=== PATIENT | female | born 1935 | race Caucasian/White ===

== ENCOUNTER 2016-08-02 18:18 | Emergency (ER) | payer MEDICARE, OTHER ==
[2016-08-02 18:59] LABS: #Eosinphils 0.1 thou/uL (0.0-0.7); #Lymphocytes 1.1 thou/uL (1.20-3.40); #Monocytes 0.3 thou/uL (0.11-0.59); #Neutrophils 2.2 thou/uL (1.40-6.50); %Basophils 0.7 % (0.0-1.0); %Eosinophils 1.5 % (0.0-10.0); %Lymphocytes 28.8 % (21.0-51.0); Hemoglobin 9.4 g/dL (12.0-16.0); Mean Corpuscular HGB CONC 33.9 g/dL (32.0-36.0); Mean Corpuscular Hemoglobin 31.9 pg (27.0-31.0); Mean Corpuscular Volume 94.2 fl (81.0-99.0); Mean Platelet Volume 5.2 fL (7.4-10.4); Platelet Count 285 thou/uL (130-400); RBC Distribution Width 15.4 % (11.5-14.5); Red Blood Cell (RBC) Count 2.96 mill/uL (4.20-5.40); White Blood Cell (WBC) Count 3.7 thou/uL (4.8-10.8)
[2016-08-02] MEDS ORDERED: Aspirin 325 MG TAB ONE (19:02)
[2016-08-02] MEDS ORDERED: Morphine Sulfate 2 MG/ML SYRINGE ONE (19:03)
[2016-08-02] MEDS ORDERED: Ondansetron HCl/PF 4 MG/2 ML Vial ONE (19:03)
[2016-08-02] MEDS ORDERED: Ketorolac Tromethamine 30 MG/ML VIAL ONE (19:03)
[2016-08-02 19:08] LABS: ALT (SGPT) 10 U/L (8-55); AST (SGOT) 14 U/L (5-34); Albumin 2.7 g/dL (3.4-4.8); Alkaline Phosphatase 65 U/L (40-150); Anion Gap 14 mmol/L (10-20); BUN (Urea Nitrogen) 30 mg/dL (9.8-20.1); Bilirubin, Total Less than 0.3 mg/dL (0.2-1.2); CK (CPK) 57 U/L (29-168); CKMB 1.3 ng/mL (0-6.6); Calc. Creatinine Clearance 0 mL/min (70-130); Calcium 7.6 mg/dL (7.8-10.44); Carbon Dioxide 20 mmol/L (23-31); Chloride 110 mmol/L (98-107); Estimated GFR-MDRD 18; Globulin 2.2 g/dL (2.4-3.5); Glucose 95 mg/dL (83-110); Magnesium 1.9 mg/dL (1.6-2.6); Potassium 4.5 mmol/L (3.5-5.1); Protein, Total 4.9 g/dL (6.0-8.3); Sodium 139 mmol/L (136-145); Troponin I 0.015 ng/mL (< 0.028)
[2016-08-02 19:11] LABS: Prothrombin Time 13.7 SEC (12.0-14.7)
[2016-08-02 19:49] LABS: Bilirubin Negative (Negative); Clarity Clear (Clear); Glucose, Urine (Dipstick) Negative (Negative); Leukocyte Negative (Negative); Nitrite Negative (Negative); Protein, Urine (Dipstick) > or equal to 300 mg/dL (Neg-Trace); Specific Gravity, Urine 1.025 (1.005-1.030); Urobilinogen 0.2 mg/dL (0.2-1.0)
[2016-08-02 19:50] LABS: Blood, Urine Small (Negative)
--- NOTE | 2016-08-02 19:53 | RAD ---
TWO VIEWS CHEST: Date: 08-02-16 Comparison: 07-30-13 History: Chest pain. FINDINGS: The lungs are hyperinflated with mild increased linear interstitial density bilaterally. Mild blunti ng of the costophrenic angles suggests small volume pleural fluid and/or pleural scar bilaterally. There is prominence of the cardiac silhouette. There is extensive atherosclerotic calcification of the thoracic aorta. There are mild anterior wedge compression fractures of T9 and T10, stable. IMPRESSION: Minimal blunting of bilateral costophrenic angles suggesting small volume pleural fluid and/or pleur al scar. No focal consolidation or alveolar edema. POS: [facility]
[2016-08-02 19:57] LABS: Bacteria/HPF Rare-Few HPF (None Seen); RBC/HPF 0-3 HPF (0-3); WBC/HPF 0-3 HPF (0-3)
== END 2016-08-02 21:30 | disposition home or self-care (01) ==
LOC: MADERS 18:18
DX: R07.9 Chest pain, unspecified (principal); I10 Essential (primary) hypertension; J44.9 Chronic obstructive pulmonary disease, unspecified; F32.9 Major depressive disorder, single episode, unspecified; Z79.899 Other long term (current) drug therapy; Z79.82 Long term (current) use of aspirin
CPT/HCPCS: 71020; 80053; 81001; 82550; 82553; 82728; 83735; 83880; 84484; 85025; 85610; 85730; 86140; 87086; 93005; 94760; 96374; 96375; J1885; J2270; J2405

== ENCOUNTER 2016-08-10 08:32 | Outpatient (CLI) | payer MEDICARE, OTHER ==
--- NOTE | 2016-08-10 10:33 | CT ---
CT THORAX NONCONTRAST: Date: 08/10/16 HISTORY: 80-year-old female with history of lung nodule. COMPARISON: There are no prior chest CTs available for comparison. None of the recent chest radiograph reports f rom 2016 and 2013 mentions any lung nodule. FINDINGS: There is no suspicious pulmonary nodule. There is a tiny right pleural effusion. There is mild pulmo nary scar in the right lower lobe, a portion of which abuts the right pleural effusion. There is no left-sided pleural effusion. Otherwise, the lungs are clear. Nonspecific mildly enlarged mediastinal lymph nodes. No cardiomegaly. Heavy atherosclerotic calcification of the aortic arch and descending thoracic aorta, without aneurysm there. There is fusiform dilation of the infrarenal abdominal aort a to dimensions of approximately 2.7 x 2.9 cm, almost aneurysmal. No hydronephrosis. No bullae. Ther e is loss of height, mostly mild, of some of the thoracic vertebral bodies and upper lumbar vertebra l bodies. There is mild bony retropulsion of the T12 vertebral body, qualifying this as a mild burst fracture. These fractures are of indeterminate age, but they are all presumed to be old. IMPRESSION: 1. No suspicious pulmonary nodule. 2. Atherosclerosis of the thoracic and abdominal aorta. 3. Tiny right pleural effusion. 4. Several mild compression fractures and a mild burst fracture, of thoracic spine and upper lumbar spine, of unknown ages. JODIE Franklin POS: [facility]
--- NOTE | 2016-08-10 10:45 | ULT ---
ULTRASOUND ABDOMEN COMPLETE: Date: 08/10/16 HISTORY: Upper abdominal pain. COMPARISON: CT of chest from same date. TECHNIQUE: Real-time Rodriguez scale and color Doppler with spectral analysis of the abdomen was performed with a cu rvilinear transducer. FINDINGS: There is focal aortic dilatation of the superior aorta measuring 2.8 cm for a length of approximatel y 3.6 cm. Remainder of aorta appears unremarkable. Visualized IVC is unremarkable. Common bile duct measures 3.0 mm and is normal. Gallbladder wall thickness is normal measuring less than 3.0 mm. Right kidney measures 8.9 x 4.0 x 4.1 cm with mild increased echogenicity. Left kidney measures 8.6 x 3.6 x 3.5 cm, with increased echogenicity. No hydronephrosis. Spleen measures 8.3 x 4.4 x 3.8 cm. Sonographic Mcmanus's sign is positive according to the technologist. No cholelithiasis is seen. IMPRESSION: 1. Positive Mcmanus's sign with a normal gallbladder wall thickness, can be seen with acalculous cho lecystitis versus biliary colic. No choledocholithiasis or dilatation of the common bile duct. 2. Mild dilatation of the mid aorta measuring up to 2.8 cm for a length of 3.6 cm. 3. Mild increased echotexture of the kidneys which are small, suggestive of medical renal disease. No evidence of obstructive uropathy. POS: [facility]
== END 2016-08-10 08:33 | disposition home or self-care (01) ==
LOC: MADCT 08:32
PROVIDERS: ATTEND General Practice
DX: R91.1 Solitary pulmonary nodule (principal); R10.10 Upper abdominal pain, unspecified; I70.0 Atherosclerosis of aorta; J90 Pleural effusion, not elsewhere classified; S22.001 Stable burst fracture of unspecified thoracic vertebra; S32.009G Unspecified fracture of unspecified lumbar vertebra, subsequent encounter for fracture with delayed healing
CPT/HCPCS: 71250; 76700

== ENCOUNTER 2017-03-27 11:38 | Emergency (ER) | payer MEDICARE, OTHER ==
[~2017-03-27 11:38] MED LIST: Sodium Chloride 0.9% 1,000 ML BAG ONE
[2017-03-27] MEDS ORDERED: Fentanyl 100 MCG/2 ML VIAL ONE (13:01)
[2017-03-27 13:02] LABS: #Lymphocytes 0.6 thou/uL (1.20-3.40); #Monocytes 0.2 thou/uL (0.11-0.59); #Neutrophils 6.4 thou/uL (1.40-6.50); %Basophils 0.2 % (0.0-1.0); %Eosinophils 0.1 % (0.0-10.0); %Lymphocytes 8.4 % (21.0-51.0); %Monocytes 2.3 % (0.0-10.0); Hemoglobin 13.8 g/dL (12.0-16.0); Mean Corpuscular HGB CONC 33.1 g/dL (32.0-36.0); Mean Corpuscular Hemoglobin 31.1 pg (27.0-31.0); Mean Corpuscular Volume 93.8 fl (81.0-99.0); Mean Platelet Volume 6.3 fL (7.4-10.4); Platelet Count 331 thou/uL (130-400); RBC Distribution Width 13.4 % (11.5-14.5); Red Blood Cell (RBC) Count 4.43 mill/uL (4.20-5.40); White Blood Cell (WBC) Count 7.1 thou/uL (4.8-10.8)
[2017-03-27 13:40] LABS: ALT (SGPT) 15 U/L (8-55); AST (SGOT) 14 U/L (5-34); Albumin 3.2 g/dL (3.4-4.8); Alkaline Phosphatase 69 U/L (40-150); Anion Gap 22 mmol/L (10-20); BUN (Urea Nitrogen) 49 mg/dL (9.8-20.1); Calc. Creatinine Clearance 0 mL/min (70-130); Calcium 8.9 mg/dL (7.8-10.44); Carbon Dioxide 21 mmol/L (23-31); Chloride 101 mmol/L (98-107); Estimated GFR-MDRD 16; Glucose 105 mg/dL (83-110); Lipase 13 U/L (8-78); Potassium 4.6 mmol/L (3.5-5.1); Protein, Total 6.2 g/dL (6.0-8.3); Sodium 139 mmol/L (136-145)
--- NOTE | 2017-03-27 14:46 | CT ---
CT ABDOMEN AND PELVIS WITHOUT CONTRAST: Technique: Multiple axial tomograms were obtained through the abdomen and pelvis without IV enhanceme nt. History: Abdominal pain. Low back pain. History of abdominal aortic aneurysm. FINDINGS: The lung bases are clear. Liver, spleen, and pancreas are unremarkable. The gallbladder is distended. No gallstones identified by CT, however, cholesterol stones would not be apparent by CT. Consider co rrelation with gallbladder ultrasound. Kidneys are unremarkable with no evidence of hydronephrosis or urinary tract calculus. Urinary bladde r unremarkable. Aorta is densely calcified. There is a small sacular aneurysmal dilatation of the mid abdominal aorta measuring up to 3.0 cm diameter in the coronal plane. Bowel loops unremarkable. Appendix is not iden tified. Diverticulosis of the left colon. No evidence of diverticulitis or other acute process. Review of the lumbar spine reveals numerous compression deformities. The L2 vertebra maintains height . All other visualized vertebra show varying degrees of compression. No significant retropulsion. The se are all age indeterminate compression deformities. Compression appears most pronounced at the L4 a nd L5 vertebra where L4 exhibits loss of central anterior height at 75% and L5 probably 50-60% loss o f height. Wedging at L3 results in 30% loss of anterior height. Mild wedging at T12 and L1 also noted . IMPRESSION: 1. No acute intraabdominal process. Abdominal aortic aneurysm is again noted. 2. Numerous compression deformities of the lumbar spine, age indeterminate. Consistent with osteoporo tic compressions. POS: [facility]
== END 2017-03-27 15:15 | disposition home or self-care (01) ==
LOC: MADERS 11:38
DX: M54.5 Low back pain (principal); E03.9 Hypothyroidism, unspecified; I50.9 Heart failure, unspecified; I25.10 Atherosclerotic heart disease of native coronary artery without angina pectoris; K21.9 Gastro-esophageal reflux disease without esophagitis; E78.5 Hyperlipidemia, unspecified; I10 Essential (primary) hypertension; F32.9 Major depressive disorder, single episode, unspecified; Z79.899 Other long term (current) drug therapy
CPT/HCPCS: 74176; 80053; 83690; 85025; 96361; 96374; J3010; J7050

== ENCOUNTER 2017-06-02 14:24 | Outpatient (CLI) | payer MEDICARE, OTHER ==
[2017-06-02 14:34] LABS: Hemoglobin 12.1 g/dL (12.0-16.0); Mean Corpuscular Hemoglobin 31.2 pg (27.0-31.0); Mean Corpuscular Volume 97.5 fL (81.0-99.0); Mean Platelet Volume 5.7 fL (7.4-10.4); Platelet Count 257 thou/uL (130-400); RBC Distribution Width 14.9 % (11.5-14.5); Red Blood Cell (RBC) Count 3.87 mill/uL (4.20-5.40); White Blood Cell (WBC) Count 7.8 thou/uL (4.8-10.8)
[2017-06-02 14:35] LABS: #Lymphocytes 0.6 thou/uL (1.20-3.40); #Monocytes 0.3 thou/uL (0.11-0.59); #Neutrophils 6.8 thou/uL (1.40-6.50); %Basophils 0.4 % (0.0-1.0); %Eosinophils 0.1 % (0.0-10.0); %Lymphocytes 8.1 % (21.0-51.0); %Monocytes 4.1 % (0.0-10.0); %Neutrophils 87.3 % (42.0-75.0); Manual Diff?? NO
[2017-06-02 14:45] LABS: Anion Gap 18 mmol/L (10-20); BUN (Urea Nitrogen) 28 mg/dL (9.8-20.1); Calc. Creatinine Clearance 0 mL/min (70-130); Calcium 7.9 mg/dL (7.8-10.44); Carbon Dioxide 18 mmol/L (23-31); Chloride 108 mmol/L (98-107); Estimated GFR-MDRD 19; Glucose 127 mg/dL (83-110); Phosphorus 3.4 mg/dL (2.3-4.7); Potassium 4.4 mmol/L (3.5-5.1); Sodium 140 mmol/L (136-145)
[2017-06-03 20:35] LABS: Follow-up Chemistry Comp? YES; Follow-up Result - Chemistry REPORT FAXED
== END 2017-06-02 14:25 | disposition home or self-care (01) ==
LOC: MADLAB 14:24
PROVIDERS: ATTEND Internal Medicine Nephrology
DX: N18.4 Chronic kidney disease, stage 4 (severe) (principal)
CPT/HCPCS: 36415; 80048; 80158; 83970; 84100; 85025

== ENCOUNTER 2017-06-13 13:58 | Outpatient (CLI) | payer MEDICARE, OTHER ==
[2017-06-13 14:07] LABS: #Lymphocytes 0.6 thou/uL (1.20-3.40); #Monocytes 0.2 thou/uL (0.11-0.59); #Neutrophils 5.2 thou/uL (1.40-6.50); %Basophils 0.4 % (0.0-1.0); %Eosinophils 0.3 % (0.0-10.0); %Lymphocytes 9.4 % (21.0-51.0); %Neutrophils 85.8 % (42.0-75.0); Hemoglobin 11.1 g/dL (12.0-16.0); Mean Corpuscular HGB CONC 31.7 g/dL (32.0-36.0); Mean Corpuscular Hemoglobin 31.8 pg (27.0-31.0); Mean Corpuscular Volume 100.2 fl (81.0-99.0); Mean Platelet Volume 5.3 fL (7.4-10.4); Platelet Count 285 thou/uL (130-400); Red Blood Cell (RBC) Count 3.49 mill/uL (4.20-5.40); White Blood Cell (WBC) Count 6.1 thou/uL (4.8-10.8)
== END 2017-06-13 13:59 | disposition home or self-care (01) ==
LOC: MADLAB 13:58
PROVIDERS: ATTEND General Practice
DX: D50.9 Iron deficiency anemia, unspecified (principal)
CPT/HCPCS: 85025

== ENCOUNTER 2017-07-12 13:29 | Outpatient (CLI) | payer MEDICARE, OTHER ==
[2017-07-12 13:40] LABS: #Lymphocytes 0.6 thou/uL (1.20-3.40); #Monocytes 0.3 thou/uL (0.11-0.59); #Neutrophils 4.8 thou/uL (1.40-6.50); %Basophils 0.4 % (0.0-1.0); %Eosinophils 0.3 % (0.0-10.0); %Lymphocytes 10.2 % (21.0-51.0); %Monocytes 4.6 % (0.0-10.0); %Neutrophils 84.5 % (42.0-75.0); Hemoglobin 10.2 g/dL (12.0-16.0); Mean Corpuscular HGB CONC 34.2 g/dL (32.0-36.0); Mean Corpuscular Hemoglobin 31.5 pg (27.0-31.0); Mean Corpuscular Volume 92.1 fl (81.0-99.0); Mean Platelet Volume 6.2 fL (7.4-10.4); Platelet Count 187 thou/uL (130-400); Red Blood Cell (RBC) Count 3.22 mill/uL (4.20-5.40); White Blood Cell (WBC) Count 5.7 thou/uL (4.8-10.8)
== END 2017-07-12 13:30 | disposition home or self-care (01) ==
LOC: MADLAB 13:29
PROVIDERS: ATTEND Internal Medicine Medical Oncology
DX: D50.9 Iron deficiency anemia, unspecified (principal)
CPT/HCPCS: 36415; 85025

== ENCOUNTER 2017-07-26 15:53 | Outpatient (CLI) | payer MEDICARE, OTHER ==
[2017-07-26 17:50] LABS: #Lymphocytes 0.5 thou/uL (1.20-3.40); #Monocytes 0.2 thou/uL (0.11-0.59); #Neutrophils 4.8 thou/uL (1.40-6.50); %Basophils 0.2 % (0.0-1.0); %Lymphocytes 9.9 % (21.0-51.0); %Monocytes 3.1 % (0.0-10.0); %Neutrophils 86.8 % (42.0-75.0); Mean Corpuscular HGB CONC 33.8 g/dL (32.0-36.0); Mean Corpuscular Hemoglobin 31.8 pg (27.0-31.0); Platelet Count 206 thou/uL (130-400); RBC Distribution Width 16.4 % (11.5-14.5); Red Blood Cell (RBC) Count 3.14 mill/uL (4.20-5.40); White Blood Cell (WBC) Count 5.5 thou/uL (4.8-10.8)
== END 2017-07-26 15:54 | disposition home or self-care (01) ==
LOC: MADLAB 15:53
PROVIDERS: ATTEND Internal Medicine Medical Oncology
DX: D63.8 Anemia in other chronic diseases classified elsewhere (principal)
CPT/HCPCS: 85025

== ENCOUNTER 2017-08-17 14:52 | Outpatient (CLI) | payer MEDICARE, OTHER ==
[2017-08-17 15:09] LABS: #Lymphocytes 0.7 thou/uL (1.20-3.40); #Monocytes 0.2 thou/uL (0.11-0.59); #Neutrophils 5.1 thou/uL (1.40-6.50); %Basophils 0.4 % (0.0-1.0); %Eosinophils 0.5 % (0.0-10.0); %Monocytes 3.6 % (0.0-10.0); %Neutrophils 84.5 % (42.0-75.0); Hemoglobin 11.5 g/dL (12.0-16.0); Mean Corpuscular HGB CONC 31.7 g/dL (32.0-36.0); Mean Corpuscular Hemoglobin 30.5 pg (27.0-31.0); Mean Corpuscular Volume 96.2 fl (81.0-99.0); Platelet Count 243 thou/uL (130-400); RBC Distribution Width 16.5 % (11.5-14.5); Red Blood Cell (RBC) Count 3.77 mill/uL (4.20-5.40)
== END 2017-08-17 14:53 | disposition home or self-care (01) ==
LOC: MADLAB 14:52
PROVIDERS: ATTEND Internal Medicine Medical Oncology
DX: D64.9 Anemia, unspecified (principal)
CPT/HCPCS: 85025

== ENCOUNTER 2017-09-06 14:13 | Outpatient (CLI) | payer MEDICARE, OTHER ==
[2017-09-06 15:19] LABS: Bilirubin Negative (Negative); Blood, Urine Negative (Negative); Clarity Slightly Cloudy (Clear); Glucose, Urine (Dipstick) Negative (Negative); Leukocyte Negative (Negative); Nitrite Negative (Negative); Protein, Urine (Dipstick) 100 mg/dL (Neg-Trace); Urobilinogen 0.2 mg/dL (0.2-1.0)
[2017-09-06 16:43] LABS: Bacteria/HPF 4+ HPF (None Seen); RBC/HPF 0-3 HPF (0-3)
== END 2017-09-06 14:14 | disposition home or self-care (01) ==
LOC: MADLAB 14:13
PROVIDERS: ATTEND General Practice
DX: R39.9 Unspecified symptoms and signs involving the genitourinary system (principal)
CPT/HCPCS: 81001; 87086

== ENCOUNTER 2017-09-14 15:28 | Outpatient (CLI) | payer MEDICARE, OTHER ==
[2017-09-14 16:21] LABS: #Eosinphils 0.1 thou/uL (0.0-0.7); #Lymphocytes 1.1 thou/uL (1.20-3.40); #Monocytes 0.3 thou/uL (0.11-0.59); #Neutrophils 2.6 thou/uL (1.40-6.50); %Basophils 0.9 % (0.0-1.0); %Eosinophils 1.3 % (0.0-10.0); %Lymphocytes 27.4 % (21.0-51.0); %Monocytes 7.7 % (0.0-10.0); %Neutrophils 62.7 % (42.0-75.0); Hemoglobin 10.7 g/dL (12.0-16.0); Mean Corpuscular HGB CONC 32.2 g/dL (32.0-36.0); Mean Corpuscular Hemoglobin 30.3 pg (27.0-31.0); Mean Corpuscular Volume 94.1 fL (78.0-98.0); Mean Platelet Volume 5.2 fL (7.4-10.4); Platelet Count 376 thou/uL (130-400); RBC Distribution Width 15.8 % (11.5-14.5); Red Blood Cell (RBC) Count 3.52 mill/uL (4.20-5.40); White Blood Cell (WBC) Count 4.2 thou/uL (4.8-10.8)
== END 2017-09-14 15:29 | disposition home or self-care (01) ==
LOC: MADLAB 15:28
PROVIDERS: ATTEND Internal Medicine Medical Oncology
DX: D63.8 Anemia in other chronic diseases classified elsewhere (principal)
CPT/HCPCS: 85025

== ENCOUNTER 2017-10-04 10:06 | Outpatient (CLI) | payer MEDICARE, OTHER ==
--- NOTE | 2017-10-04 10:54 | RAD ---
PELVIS THREE VIEWS: HISTORY: Fall with right-sided pelvic pain. COMPARISON: None. FINDINGS: Three views of the pelvis show questionable lucency extending through the right superior pubic ramus on only one view. this could also be artifactual. No other potential pelvis fractures are seen. No degenerative changes are seen in either hip. IMPRESSION: Possible right superior pubic ramus fracture. This could also be artifactual. A CT of the pelvis is recommended to evaluate if a fracture is truly present. POS: [facility]
== END 2017-10-04 10:07 | disposition home or self-care (01) ==
LOC: MADRAD 10:06
PROVIDERS: ATTEND General Practice
DX: R10.2 Pelvic and perineal pain (principal)
CPT/HCPCS: 72190

== ENCOUNTER 2017-10-13 11:58 | Outpatient (CLI) | payer MEDICARE, OTHER ==
[2017-10-13 12:49] LABS: #Eosinphils 0.1 thou/uL (0.0-0.7); #Lymphocytes 0.8 thou/uL (1.20-3.40); #Monocytes 0.3 thou/uL (0.11-0.59); #Neutrophils 3.1 thou/uL (1.40-6.50); %Basophils 0.6 % (0.0-1.0); %Eosinophils 1.6 % (0.0-10.0); %Lymphocytes 18.6 % (21.0-51.0); %Monocytes 7.7 % (0.0-10.0); %Neutrophils 71.5 % (42.0-75.0); Hemoglobin 10.9 g/dL (12.0-16.0); Mean Corpuscular HGB CONC 32.2 g/dL (32.0-36.0); Mean Platelet Volume 5.7 fL (7.4-10.4); Platelet Count 293 thou/uL (130-400); RBC Distribution Width 14.8 % (11.5-14.5); Red Blood Cell (RBC) Count 3.64 mill/uL (4.20-5.40); White Blood Cell (WBC) Count 4.4 thou/uL (4.8-10.8)
[2017-10-13 12:59] LABS: Anion Gap 18 mmol/L (10-20); BUN (Urea Nitrogen) 52 mg/dL (9.8-20.1); Calc. Creatinine Clearance 0 mL/min (70-130); Calcium 9.1 mg/dL (7.8-10.44); Carbon Dioxide 24 mmol/L (23-31); Chloride 101 mmol/L (98-107); Estimated GFR-MDRD 13; Glucose 88 mg/dL (83-110); Sodium 138 mmol/L (136-145)
== END 2017-10-13 11:59 | disposition home or self-care (01) ==
LOC: MADLAB 11:58
PROVIDERS: ATTEND Internal Medicine Nephrology
DX: D64.9 Anemia, unspecified (principal); Z79.52 Long term (current) use of systemic steroids
CPT/HCPCS: 36415; 80048; 80158; 83970; 85025

== ENCOUNTER 2017-11-24 13:16 | Outpatient (CLI) | payer MEDICARE, OTHER ==
[2017-11-24 13:27] LABS: #Lymphocytes 1.1 thou/uL (1.20-3.40); #Monocytes 0.5 thou/uL (0.11-0.59); #Neutrophils 5.9 thou/uL (1.40-6.50); %Basophils 0.4 % (0.0-1.0); %Eosinophils 0.3 % (0.0-10.0); %Lymphocytes 14.5 % (21.0-51.0); %Monocytes 6.6 % (0.0-10.0); %Neutrophils 78.2 % (42.0-75.0); Hemoglobin 11.3 g/dL (12.0-16.0); Mean Corpuscular HGB CONC 33.3 g/dL (32.0-36.0); Mean Corpuscular Hemoglobin 31.1 pg (27.0-31.0); Mean Corpuscular Volume 93.5 fL (78.0-98.0); Mean Platelet Volume 5.9 fL (7.4-10.4); Platelet Count 183 thou/uL (130-400); RBC Distribution Width 17.5 % (11.5-14.5); Red Blood Cell (RBC) Count 3.63 mill/uL (4.20-5.40); White Blood Cell (WBC) Count 7.5 thou/uL (4.8-10.8)
[2017-11-24 13:39] LABS: Anion Gap 15 mmol/L (10-20); BUN (Urea Nitrogen) 46 mg/dL (9.8-20.1); Calc. Creatinine Clearance 0 mL/min (70-130); Calcium 8.5 mg/dL (7.8-10.44); Carbon Dioxide 21 mmol/L (23-31); Chloride 109 mmol/L (98-107); Estimated GFR-MDRD 19; Glucose 103 mg/dL (83-110); Phosphorus 4.3 mg/dL (2.3-4.7); Potassium 4.6 mmol/L (3.5-5.1); Sodium 140 mmol/L (136-145)
[2017-11-24 18:56] LABS: Creatinine, Urine 51.22 mg/dL (47-110)
== END 2017-11-24 13:17 | disposition home or self-care (01) ==
LOC: MADLAB 13:16
PROVIDERS: ATTEND Internal Medicine Nephrology
DX: N18.4 Chronic kidney disease, stage 4 (severe) (principal)
CPT/HCPCS: 80048; 82570; 83970; 84100; 84156; 84443; 85025

== ENCOUNTER 2017-12-08 14:33 | Outpatient (CLI) | payer MEDICARE, OTHER ==
[2017-12-08 15:57] LABS: #Monocytes 0.3 thou/uL (0.11-0.59); #Neutrophils 5.3 thou/uL (1.40-6.50); %Basophils 0.3 % (0.0-1.0); %Eosinophils 0.3 % (0.0-10.0); %Lymphocytes 15.4 % (21.0-51.0); %Monocytes 4.1 % (0.0-10.0); Hemoglobin 10.7 g/dL (12.0-16.0); Mean Corpuscular HGB CONC 32.4 g/dL (32.0-36.0); Mean Corpuscular Hemoglobin 31.2 pg (27.0-31.0); Mean Corpuscular Volume 96.5 fL (78.0-98.0); Mean Platelet Volume 6.1 fL (7.4-10.4); Platelet Count 198 thou/uL (130-400); Red Blood Cell (RBC) Count 3.42 mill/uL (4.20-5.40); White Blood Cell (WBC) Count 6.6 thou/uL (4.8-10.8)
== END 2017-12-08 14:34 | disposition home or self-care (01) ==
LOC: MADLAB 14:33
PROVIDERS: ATTEND General Practice
DX: D64.9 Anemia, unspecified (principal)
CPT/HCPCS: 36415; 85025

== ENCOUNTER 2017-12-27 12:03 | Outpatient (CLI) | payer MEDICARE, OTHER ==
--- NOTE | 2017-12-27 12:59 | RAD ---
LEFT HIP TWO VIEWS: History: Left hip pain. FINDINGS: The bones are demineralized. There is some minimal arthritic change of the hip. No fracture is seen. IMPRESSION: No evidence of acute injury. POS: [facility]
--- NOTE | 2017-12-27 13:59 | RAD ---
SI JOINTS THREE VIEWS: History: Back pain. SI joint pain. FINDINGS/IMPRESSION: SI joints are symmetric. Mild degenerative sclerosis seen along both SI joints. No evidence of fractu re or acute osseous lesion. Prominent arterial calcification is noted. POS: [facility]
--- NOTE | 2017-12-27 14:01 | RAD ---
AP PELVIS: Date: 12/27/17 HISTORY: Pelvic pain x1 week. No history of trauma. FINDINGS: The bones are diffusely demineralized. Healing fractures along the right side of the symphysis are ag ain noted involving the right superior pubic ramus region. Pelvic ring is otherwise intact. SI joints are symmetric. Minimal arthritic changes of the lower lumbar spine and both hips are present. Fairly extensive vascular calcifications are noted. IMPRESSION: Healing right-sided parasymphyseal fracture. If patient has pain related to an area other than the sy mphysis region, and specifically if a sacral insufficiency fracture is clinically suspected, MRI may be helpful in evaluation. POS: [facility]
[2017-12-27 19:13] LABS: #Lymphocytes 0.7 thou/uL (1.20-3.40); #Monocytes 0.2 thou/uL (0.11-0.59); #Neutrophils 6.2 thou/uL (1.40-6.50); %Basophils 0.2 % (0.0-1.0); %Lymphocytes 10.1 % (21.0-51.0); %Monocytes 3.3 % (0.0-10.0); %Neutrophils 86.4 % (42.0-75.0); Hemoglobin 11.7 g/dL (12.0-16.0); Mean Corpuscular HGB CONC 32.4 g/dL (32.0-36.0); Mean Corpuscular Hemoglobin 31.1 pg (27.0-31.0); Mean Platelet Volume 5.1 fL (7.4-10.4); Platelet Count 289 thou/uL (130-400); RBC Distribution Width 17.2 % (11.5-14.5); Red Blood Cell (RBC) Count 3.77 mill/uL (4.20-5.40); White Blood Cell (WBC) Count 7.2 thou/uL (4.8-10.8)
== END 2017-12-27 12:04 | disposition home or self-care (01) ==
LOC: MADRAD 12:03
PROVIDERS: ATTEND General Practice
DX: M25.552 Pain in left hip (principal); M25.551 Pain in right hip; R10.2 Pelvic and perineal pain; S32.89XD Fracture of other parts of pelvis, subsequent encounter for fracture with routine healing; G95.89 Other specified diseases of spinal cord; I70.90 Unspecified atherosclerosis
CPT/HCPCS: 72170; 72202; 85025

== ENCOUNTER 2017-12-29 15:24 | Outpatient (CLI) | payer MEDICARE, OTHER ==
[2017-12-29 16:48] LABS: Bilirubin Negative (Negative); Blood, Urine Trace (Negative); Glucose, Urine (Dipstick) Negative (Negative); Leukocyte Negative (Negative); Nitrite Negative (Negative); Protein, Urine (Dipstick) 100 mg/dL (Neg-Trace); Specific Gravity, Urine 1.015 (1.005-1.030); Urobilinogen 0.2 mg/dL (0.2-1.0)
[2017-12-29 17:02] LABS: Bacteria/HPF 1+ HPF (None Seen); Clarity Hazy (Clear); RBC/HPF 0-3 HPF (0-3); Squamous Epithelial 0-3 HPF (0-3)
== END 2017-12-29 15:25 | disposition home or self-care (01) ==
LOC: MADLAB 15:24
PROVIDERS: ATTEND General Practice
DX: R30.0 Dysuria (principal)
CPT/HCPCS: 81001; 87086

== ENCOUNTER 2018-01-10 14:07 | Outpatient (CLI) | payer MEDICARE, OTHER ==
[2018-01-10 14:48] LABS: #Monocytes 0.4 thou/uL (0.11-0.59); #Neutrophils 3.8 thou/uL (1.40-6.50); %Basophils 0.8 % (0.0-1.0); %Eosinophils 0.8 % (0.0-10.0); %Lymphocytes 18.8 % (21.0-51.0); %Monocytes 8.3 % (0.0-10.0); %Neutrophils 71.2 % (42.0-75.0); Hemoglobin 11.2 g/dL (12.0-16.0); Mean Corpuscular HGB CONC 31.8 g/dL (32.0-36.0); Mean Corpuscular Hemoglobin 30.3 pg (27.0-31.0); Mean Corpuscular Volume 95.3 fL (78.0-98.0); Mean Platelet Volume 6.2 fL (7.4-10.4); Platelet Count 220 thou/uL (130-400); White Blood Cell (WBC) Count 5.3 thou/uL (4.8-10.8)
[2018-01-10 14:57] LABS: Anion Gap 16 mmol/L (10-20); BUN (Urea Nitrogen) 47 mg/dL (9.8-20.1); Calc. Creatinine Clearance 0 mL/min (70-130); Calcium 8.6 mg/dL (7.8-10.44); Carbon Dioxide 19 mmol/L (23-31); Chloride 105 mmol/L (98-107); Estimated GFR-MDRD 14; Glucose 97 mg/dL (83-110); Phosphorus 4.6 mg/dL (2.3-4.7); Potassium 4.8 mmol/L (3.5-5.1); Sodium 135 mmol/L (136-145)
[2018-01-10 22:36] LABS: Creatinine, Urine 76.63 mg/dL (47-110)
== END 2018-01-10 14:08 | disposition home or self-care (01) ==
LOC: MADLAB 14:07
PROVIDERS: ATTEND Internal Medicine Nephrology
DX: N18.4 Chronic kidney disease, stage 4 (severe) (principal)
CPT/HCPCS: 80048; 82570; 83970; 84100; 84156; 84443; 85025

== ENCOUNTER 2018-04-21 13:16 | Outpatient (CLI) | payer MEDICARE, OTHER ==
[2018-04-21 14:37] LABS: #Lymphocytes 1.2 thou/uL (1.20-3.40); #Monocytes 0.4 thou/uL (0.11-0.59); #Neutrophils 2.7 thou/uL (1.40-6.50); %Basophils 0.7 % (0.0-1.0); %Eosinophils 0.9 % (0.0-10.0); %Lymphocytes 27.7 % (21.0-51.0); %Monocytes 9.5 % (0.0-10.0); %Neutrophils 61.3 % (42.0-75.0); Hemoglobin 11.3 g/dL (12.0-16.0); Mean Corpuscular HGB CONC 31.4 g/dL (32.0-36.0); Mean Corpuscular Hemoglobin 29.4 pg (27.0-31.0); Mean Corpuscular Volume 93.8 fL (78.0-98.0); Mean Platelet Volume 5.8 fL (7.4-10.4); Platelet Count 207 thou/uL (130-400); RBC Distribution Width 13.3 % (11.5-14.5); Red Blood Cell (RBC) Count 3.83 mill/uL (4.20-5.40); White Blood Cell (WBC) Count 4.4 thou/uL (4.8-10.8)
== END 2018-04-21 13:17 | disposition home or self-care (01) ==
LOC: MADLAB 13:16
PROVIDERS: ATTEND General Practice
DX: N18.9 Chronic kidney disease, unspecified (principal); D63.1 Anemia in chronic kidney disease
CPT/HCPCS: 85025

== ENCOUNTER 2018-10-14 08:21 | Emergency (ER) | payer MEDICARE, OTHER ==
[2018-10-14] MEDS ORDERED: Morphine 4 MG/ML VIAL ONE (09:00)
[2018-10-14 09:08] LABS: #Eosinphils 0.1 thou/uL (0.0-0.7); #Monocytes 0.3 thou/uL (0.11-0.59); #Neutrophils 2.8 thou/uL (1.40-6.50); %Basophils 0.8 % (0.0-1.0); %Lymphocytes 22.6 % (21.0-51.0); %Monocytes 7.6 % (0.0-10.0); %Neutrophils 67.1 % (42.0-75.0); Hemoglobin 10.6 g/dL (12.0-16.0); Mean Corpuscular HGB CONC 32.7 g/dL (32.0-36.0); Mean Corpuscular Hemoglobin 30.2 pg (27.0-31.0); Mean Corpuscular Volume 92.2 fL (78.0-98.0); Mean Platelet Volume 6.1 fL (7.4-10.4); Platelet Count 235 thou/uL (130-400); RBC Distribution Width 15.9 % (11.5-14.5); Red Blood Cell (RBC) Count 3.51 mill/uL (4.20-5.40); White Blood Cell (WBC) Count 4.2 thou/uL (4.8-10.8)
[2018-10-14 09:19] LABS: Anion Gap 13 mmol/L (10-20); Carbon Dioxide 21 mmol/L (23-31); Chloride 106 mmol/L (98-107); Potassium 5.2 mmol/L (3.5-5.1); Sodium 135 mmol/L (136-145)
[2018-10-14 09:20] LABS: ALT (SGPT) 11 U/L (8-55); AST (SGOT) 16 U/L (5-34); Albumin 3.5 g/dL (3.4-4.8); Alkaline Phosphatase 108 U/L (40-150); BUN (Urea Nitrogen) 55 mg/dL (9.8-20.1); Bilirubin, Total 0.6 mg/dL (0.2-1.2); Calc. Creatinine Clearance 0 mL/min (70-130); Calcium 8.5 mg/dL (7.8-10.44); Estimated GFR-MDRD 11; Glucose 82 mg/dL (83-110); Protein, Total 6.5 g/dL (6.0-8.3)
--- NOTE | 2018-10-14 09:45 | CT ---
CT BRAIN WITHOUT CONTRAST: Date: 10/14/18 HISTORY: Fall. Headache. FINDINGS: There are changes of cortical atrophy and chronic small vessel ischemic disease. o evidence of acute infarct, hemorrhage, midline shift, or abnormal extra-axial fluid collections are seen. The basilar c isterns are patent. The bony calvarium is intact. The visualized paranasal sinuses and mastoid air ce lls are well aerated. IMPRESSION: No CT evidence of acute intracranial process. POS: [facility]
--- NOTE | 2018-10-14 09:49 | CT ---
CT LUMBAR SPINE WITHOUT CONTRAST: INDICATIONS: Fall COMPARISON: CT the abdomen and pelvis dated May 17, 2017 TECHNIQUE: Multiple CT images were obtained of the lumbar spine without contrast. Axial, coronal, and sagittal r eformatted images were constructed from the raw data. FINDINGS: Visualized retroperitoneal and paravertebral soft tissues: There are small bilateral pleural effusion s. There is been interval enlargement of the infrarenal abdominal aorta now measuring up to 3.1 cm were previously measured 2.9 cm. There is a moderate amount of retained stool within the colon. There are scattered colonic diverticula. There are numerous phleboliths within the lower pelvis. Spinal alignment: Within normal limits. Spinal instrumentation or postsurgical change: None There is diffuse osteopenia. The multilevel wedge compression abnormalities involving L5, L4, L3, L1 and T12 are stable. No acute fracture is evident. No appreciable osseous central canal or osseous neural foraminal narrowing is grossly evident. IMPRESSION: 1. No acute osseous abnormality. 2. Stable chronic wedge compression abnormalities at T12, L1, L3, L4 and L5 3. Mild interval enlargement of the infrarenal abdominal aorta now measuring up to 3.1 cm. 4. Small bilateral pleural effusions 5. Moderate amount of retained stool within the colon is scattered colonic diverticulosis
[2018-10-14 09:54] LABS: Bilirubin Negative (Negative); Blood, Urine Trace (Negative); Glucose, Urine (Dipstick) Negative (Negative); Leukocyte Trace (Negative); Nitrite Negative (Negative); Protein, Urine (Dipstick) 100 mg/dL (Neg-Trace); Urobilinogen 0.2 mg/dL (Less than 2)
[2018-10-14 09:55] LABS: Clarity Hazy (Clear)
[2018-10-14 09:59] LABS: Bacteria/HPF Rare-Few HPF (None Seen); RBC/HPF 0-3 HPF (0-3); Squamous Epithelial 0-3 HPF (0-3); WBC/HPF 0-3 HPF (0-3)
--- NOTE | 2018-10-14 10:39 | CT ---
CT CHEST WITHOUT CONTRAST: Date: 10/14/18 HISTORY: Fall. Chest pain. COMPARISON: 08/10/16. FINDINGS: Absence of IV contrast reduces the sensitivity of exam, particularly for evaluation of mediastinal, h ilar, and vascular structures. There are vascular calcifications without evidence of aneurysmal dilatation of the thoracic aorta. Th ere is incomplete visualization of an abdominal aortic aneurysm. The visualized portions of the aneur ysm measures 3.2 cm. No pleural or pericardial effusions are seen. No pneumothoraces or pulmonary contusions are identifie d. Multiple compression fractures are again seen with worsening and severe compression of T9 vertebral b [place]. IMPRESSION: 1. Age-indeterminate thoracic spine fractures. 2. Incomplete visualization of abdominal aortic aneurysm. POS: [facility]
== END 2018-10-14 10:50 | disposition home or self-care (01) ==
LOC: MADERS 08:21
DX: S22.080A Wedge compression fracture of T11-T12 vertebra, initial encounter for closed fracture (principal); S32.010A Wedge compression fracture of first lumbar vertebra, initial encounter for closed fracture; S32.030A Wedge compression fracture of third lumbar vertebra, initial encounter for closed fracture; S32.040A Wedge compression fracture of fourth lumbar vertebra, initial encounter for closed fracture; S32.050A Wedge compression fracture of fifth lumbar vertebra, initial encounter for closed fracture; I13.0 Hypertensive heart and chronic kidney disease with heart failure and stage 1 through stage 4 chronic kidney disease, or unspecified chronic kidney disease; N18.4 Chronic kidney disease, stage 4 (severe); I50.9 Heart failure, unspecified; I25.10 Atherosclerotic heart disease of native coronary artery without angina pectoris; E03.9 Hypothyroidism, unspecified; K21.9 Gastro-esophageal reflux disease without esophagitis; E78.5 Hyperlipidemia, unspecified; F32.9 Major depressive disorder, single episode, unspecified; Z79.82 Long term (current) use of aspirin; Z79.899 Other long term (current) drug therapy; W01.198A Fall on same level from slipping, tripping and stumbling with subsequent striking against other object, initial encounter
CPT/HCPCS: 70460; 71250; 72131; 80053; 81003; 81015; 83605; 85025; 87086; 96374; J2270

== ENCOUNTER 2018-11-07 15:40 | Inpatient (IN) | payer MEDICARE, OTHER ==
[2018-11-07] MEDS ORDERED: Ondansetron ODT 4 MG TAB PO PRN (17:11)
[2018-11-07] MEDS ORDERED: Metoclopramide 10 MG/10 ML UDCUP PO PRN (17:12)
[2018-11-07] MEDS: Atenolol 25 MG TAB PO SCH (20:48)
[2018-11-07] MEDS: Aspirin 81 mg Enteric Coated Tablet PO SCH (20:48)
[2018-11-07] MEDS: cycloSPORINE, Modified 25 MG CAP PO SCH (20:51)
[2018-11-07] MEDS: Heparin 5,000 UNITS/ML VIAL SC SCH (20:51)
[2018-11-07] MEDS: hydrALAZINE 25 MG TAB PO SCH (20:53)
[2018-11-07] MEDS: Sodium Bicarbonate Tab 325 MG TAB PO SCH (20:53)
[2018-11-07] MEDS: ALPRAZolam 0.25 MG TAB PO PRN (21:01)
[2018-11-08] MEDS: Calcium Carbonate 500 MG ChewTAB PO PRN (03:59)
[2018-11-08] MEDS: hydrALAZINE 25 MG TAB PO SCH ×3 (05:41→21:06)
[2018-11-08] MEDS ORDERED: hydrALAZINE 25 MG TAB PO SCH (06:00)
[2018-11-08] MEDS: Dronabinol 2.5 MG CAP PO SCH ×2 (07:41→17:13)
[2018-11-08] MEDS: ALPRAZolam 0.25 MG TAB PO PRN ×3 (07:41→21:07)
[2018-11-08] MEDS: Calcitriol 0.25 MCG CAP PO SCH (09:17)
[2018-11-08] MEDS: Isosorbide Mononitrate (ER) 30 MG TAB PO SCH (09:17)
[2018-11-08] MEDS: Ezetimibe 10 MG TAB PO SCH (09:17)
[2018-11-08] MEDS: NIFEdipine XL 30 MG TAB PO SCH (09:18)
[2018-11-08] MEDS: Levothyroxine Sodium 88 MCG TAB PO SCH (09:18)
[2018-11-08] MEDS: Sodium Bicarbonate Tab 325 MG TAB PO SCH ×3 (09:18→21:06)
[2018-11-08] MEDS: Venlafaxine XR 37.5 MG CAP PO SCH (09:18)
[2018-11-08] MEDS: Heparin 5,000 UNITS/ML VIAL SC SCH (09:19)
[2018-11-08] MEDS: cycloSPORINE, Modified 25 MG CAP PO SCH ×2 (09:19→21:06)
[2018-11-08] MEDS: Polyethylene Glycol 3350 17 GM Packet PO SCH ×2 (09:47→10:47)
[2018-11-08] MEDS ORDERED: Polyethylene Glycol 3350 17 GM Packet PO SCH (10:15)
[2018-11-08] MEDS: Acetaminophen 325 MG TAB PO PRN (15:11)
--- NOTE | 2018-11-08 15:41 | HP ---
PRIMARY CARE PHYSICIAN: Dr. Darden [facility]. REASON FOR ADMISSION: For skilled rehabilitation at [facility] secondary to physical debility, status post recent hospitalization where she had acute on chronic kidney disease, failure to thrive, and nausea and vomiting. HISTORY OF PRESENT ILLNESS: Ms. Ruby Perez is an 83-year-old very pleasant female, who presented to the emergency room, October 24, 2018, due to complaints of generalized weakness, poor oral intake, weight loss, and frequent falls. The patient does have a history of chronic nausea and hiatal hernia. She does have a history of chronic kidney failure, followed by Dr. Casanova. Family member was concerned because she has progressively worsened, she is losing weight, and has failure to thrive. In the emergency room, the patient was noted to have an acute on chronic kidney injury with a creatinine of 3.6 when her baseline is around 2.5. She was seen by Dr. Casanova in the hospital, and he gently hydrated her and felt this was related to prerenal azotemia due to poor oral intake. She was seen by fagoter due to nausea, vomiting, and then, she had an abdominal ultrasound, which was noncontributory. She did have a prior EGD, which showed mild hiatal hernia with gastric atrophy. The patient was treated symptomatically for her nausea with Reglan, which had helped her during the hospital stay. The patient did have fairly elevated blood pressures during the hospital stay and medications were adjusted. She was started on hydralazine. Her nifedipine was increased, and she was started on clonidine patch. Her hospitalization was also complicated by episode of volume overload, and she was given a few doses of Lasix, which unfortunately complicated her renal function more, and Dr. Casanova placed her on some IV albumin close to her discharge, which only slightly improved the renal function. The patient' s blood pressure throughout hospitalization was very labile in the 220s, and Dr. Casanova was intially comfortable with the blood pressure being in the 180s-190s. Due to prolonged hospital course, failure to thrive, generalized weakness, and recurrent falls, the decision was made to transfer the patient to skilled rehabilitation swing bed facility. Upon admission today, the patient was in the room, her daughter visited. She complained of weakness. She is eager to start physical therapy, so she would be able to go back to her home. The patient states she lives in [place] by herself and has daughters in neighboring towns. She denies any fever. She complains of nausea. She is worried about her blood pressure, and she states she does not want to have a stroke. She denies any chest pain, any shortness of breath or palpitation. The patient does have oxygen to 2 L on. PAST MEDICAL HISTORY: CAD, chronic diastolic heart failure, hypothyroidism, hiatal hernia, GERD, dyslipidemia, hypertension, history of glomerulonephritis, history of abdominal aortic aneurysm, chronic kidney disease stage 4, osteoporosis, compression fracture L4 to L5, history of previous pelvic fracture after a fall. PAST SURGICAL HISTORY: Back surgery, bladder suspension, appendectomy, hysterectomy. PAST PSYCHIATRIC HISTORY: Anxiety with depression. SOCIAL HISTORY: The patient lives by herself in [place]. She has her oldest daughter as the power of erisa attorney. Denies any tobacco, alcohol, or illicit drug use. ALLERGIES: CODEINE, IODINE, AND IRON. CODE STATUS: Full code. MEDICATIONS: 1. Sodium bicarbonate 650 p.o. t.i.d. 2. Nifedipine 90 daily. 3. Reglan 5 q.i.d. p.r.n. 4. Imdur 30 daily. 5. Hydralazine 100 t.i.d. 6. Heparin 5000 units b.i.d. 7. Marinol 2.5 b.i.d. 8. Catapres patch 0.1 weekly. 9. Tums 1000 q.4 p.r.n. 10. Atenolol 75 at bedtime. 11. Alprazolam 0.25 t.i.d. as needed. 12. Effexor 75 daily. 13. Tramadol 50 q.6 p.r.n. 14. Protonix 40 p.o. at bedtime. 15. Levothyroxine 88 mcg daily. 16. Zetia 10 mg daily. 17. Calcitriol 0.25 mcg daily. 18. Cyclosporine 25 mg in the day and 100 in the evening. 19. Aspirin 81 mg daily. REVIEW OF SYSTEMS: GENERAL: The patient complains of generalized weakness, nausea. HEENT: Denies oral pain, vision changes, or dysphagia. CHEST: Denies chest pain, shortness of breath, palpitations, or dizziness. RESPIRATORY: Denies cough, shortness of breath, or wheezing. ABDOMEN: Complains of nausea. Denies vomiting. Denies constipation or diarrhea. GENITOURINARY: Denies dysuria or hematuria. SKIN: Denies bruises. PSYCHIATRY: Denies anxiety or depression. MUSCULOSKELETAL: Complains of generalized gait instability. Complains of lower back pain. Complains of weakness due to debility. PHYSICAL EXAMINATION: VITAL SIGNS: Temperature 98.6, pulse 64, respirations 18, O2 of 94% on 2 L nasal cannula, blood pressure 168/64. GENERAL: The patient is a pleasant chronically ill, frail elderly female, lying in bed, in no obvious acute distress. HEENT: Head; normocephalic, atraumatic. Eyes; pupils round and reactive to light. Extraocular muscles intact. However, no oral lesions. NECK: Supple. No JVD. LUNGS: Clear to auscultation bilaterally. No rales, rhonchi. CARDIAC: S1 and S2. Regular. No murmurs, no gallops, no rubs. ABDOMEN: Positive bowel sounds. Soft, nontender, nondistended. No rebound. No mass. No peritoneal sign. BACK: Unremarkable. No CVA tenderness. EXTREMITIES: No edema or erythema. SKIN: No skin rash. NEUROLOGICAL: No focal deficit. ASSESSMENT: 1. Physical debility. 2. Acute on chronic kidney failure with baseline chronic kidney disease stage 4, anorexia, weight loss, failure to thrive. 3. Anemia, normocytic normochromic. 4. Hypertension, uncontrolled. 5. Dyslipidemia. 6. Hypothyroidism. 7. Gastroesophageal reflux disease. The patient is an 83-year-old female, who has been admitted to [facility] for skilled rehabilitation and gait strengthening. We will consult Physical Therapy for strengthening in order to gain modified independence with gait. We will consult Occupational therapy to help with activities of daily living. We will monitor blood pressure closely. We will repeat CBC and BMP weekly, start on the and send report to Dr. Casanova. The patient's front end ui developer has requested, we will resume home medications. We will place the patient on Protonix for GI prophylaxis and compression stockings for DVT prophylaxis. We will discontinue the heparin. Estimated length of stay is 2 to 3 weeks. DISPOSITION: Home. CODE STATUS: The patient is a full code. Job ID: [id number] MTDD
[2018-11-08] MEDS: Atenolol 25 MG TAB PO SCH (21:07)
[2018-11-08] MEDS: Aspirin 81 mg Enteric Coated Tablet PO SCH (21:07)
[2018-11-09 05:40] LABS: #Lymphocytes 0.6 thou/uL (1.20-3.40); #Monocytes 0.5 thou/uL (0.11-0.59); %Basophils 0.7 % (0.0-1.0); %Eosinophils 0.2 % (0.0-10.0); %Monocytes 9.5 % (0.0-10.0); %Neutrophils 78.6 % (42.0-75.0); Mean Corpuscular Hemoglobin 30.7 pg (27.0-31.0); Mean Platelet Volume 5.8 fL (7.4-10.4); Platelet Count 157 thou/uL (130-400); RBC Distribution Width 16.3 % (11.5-14.5); Red Blood Cell (RBC) Count 2.92 mill/uL (4.20-5.40); White Blood Cell (WBC) Count 5.1 thou/uL (4.8-10.8)
[2018-11-09 05:46] LABS: Anion Gap 21 mmol/L (10-20); BUN (Urea Nitrogen) 45 mg/dL (9.8-20.1); Calc. Creatinine Clearance 12 mL/min (70-130); Calcium 9.1 mg/dL (7.8-10.44); Carbon Dioxide 17 mmol/L (23-31); Chloride 99 mmol/L (98-107); Estimated GFR-MDRD 16; Glucose 91 mg/dL (83-110); Potassium 3.8 mmol/L (3.5-5.1); Sodium 133 mmol/L (136-145)
[2018-11-09] MEDS: Acetaminophen 325 MG TAB PO PRN (06:03)
[2018-11-09] MEDS: Venlafaxine XR 37.5 MG CAP PO SCH (08:44)
[2018-11-09] MEDS: Isosorbide Mononitrate (ER) 30 MG TAB PO SCH (08:44)
[2018-11-09] MEDS: Dronabinol 2.5 MG CAP PO SCH ×2 (08:44→16:57)
[2018-11-09] MEDS: Calcitriol 0.25 MCG CAP PO SCH (08:44)
[2018-11-09] MEDS: Ezetimibe 10 MG TAB PO SCH (08:45)
[2018-11-09] MEDS: Levothyroxine Sodium 88 MCG TAB PO SCH (08:45)
[2018-11-09] MEDS: hydrALAZINE 25 MG TAB PO SCH ×3 (08:45→21:31)
[2018-11-09] MEDS: EPOETIN ALFA-EPBX (NON-ESRD) 10,000 UNIT/ML VIAL SC SCH (08:46)
[2018-11-09] MEDS: NIFEdipine XL 30 MG TAB PO SCH (08:46)
[2018-11-09] MEDS: Polyethylene Glycol 3350 17 GM Packet PO SCH (08:47)
[2018-11-09] MEDS: cycloSPORINE, Modified 25 MG CAP PO SCH ×2 (09:18→21:30)
[2018-11-09] MEDS: Sodium Bicarbonate Tab 325 MG TAB PO SCH ×3 (09:18→21:36)
[2018-11-09] MEDS ORDERED: Bisacodyl 10 MG SUPP PR PRN (13:09)
[2018-11-09 16:48] LABS: Bilirubin Negative (Negative); Blood, Urine Negative (Negative); Clarity Hazy (Clear); Glucose, Urine (Dipstick) Negative (Negative); Leukocyte Negative (Negative); Nitrite Negative (Negative); Protein, Urine (Dipstick) > or equal to 300 mg/dL (Neg-Trace); Urobilinogen 0.2 mg/dL (Less than 2)
[2018-11-09 16:50] LABS: Urine Culture Reflex No No
[2018-11-09 16:54] LABS: RBC/HPF 0-3 HPF (0-3); WBC/HPF 0-3 HPF (0-3)
[2018-11-09 16:55] LABS: Bacteria/HPF 1+ HPF (None Seen)
[2018-11-09] MEDS: ALPRAZolam 0.25 MG TAB PO PRN (21:31)
[2018-11-09] MEDS: Aspirin 81 mg Enteric Coated Tablet PO SCH (21:35)
[2018-11-09] MEDS: Atenolol 25 MG TAB PO SCH (21:35)
[2018-11-10] MEDS: hydrALAZINE 25 MG TAB PO SCH ×3 (08:53→20:40)
[2018-11-10] MEDS: Calcitriol 0.25 MCG CAP PO SCH (08:53)
[2018-11-10] MEDS: Ezetimibe 10 MG TAB PO SCH (08:53)
[2018-11-10] MEDS: Sodium Bicarbonate Tab 325 MG TAB PO SCH ×3 (08:54→20:40)
[2018-11-10] MEDS: Venlafaxine XR 37.5 MG CAP PO SCH (08:54)
[2018-11-10] MEDS: NIFEdipine XL 30 MG TAB PO SCH (08:55)
[2018-11-10] MEDS: Levothyroxine Sodium 88 MCG TAB PO SCH (08:55)
[2018-11-10] MEDS: cycloSPORINE, Modified 25 MG CAP PO SCH ×2 (08:55→20:41)
[2018-11-10] MEDS: Isosorbide Mononitrate (ER) 30 MG TAB PO SCH (08:55)
[2018-11-10] MEDS: Polyethylene Glycol 3350 17 GM Packet PO SCH (08:56)
[2018-11-10] MEDS: Dronabinol 2.5 MG CAP PO SCH ×2 (08:56→16:22)
--- NOTE | 2018-11-10 18:20 | RAD ---
EXAM: Chest PA and lateral: HISTORY: Evaluate lung status COMPARISON: 08/02/2016, 11/01/2018 FINDINGS: Heart: Limited evaluation of the cardiac silhouette due to worsening bibasilar opacity suggesting pro gression of pleural effusion with adjacent parenchymal changes. Aorta: Atherosclerosis Pulmonary vessels: Mildly prominent Costophrenic angles: Worsening pleural effusions. Lungs: Bibasilar opacity likely representing atelectasis, pneumonia or aspiration. Pneumothorax: No pneumothorax Osseous structures: Chronic compression fracture in the mid to distal thoracic spine with associated kyphosis. IMPRESSION: Worsening opacification the lung bases as described above. Continued surveillance is recommended.
[2018-11-10] MEDS: ALPRAZolam 0.25 MG TAB PO PRN (20:39)
[2018-11-10] MEDS: Aspirin 81 mg Enteric Coated Tablet PO SCH (20:41)
[2018-11-10] MEDS: Atenolol 25 MG TAB PO SCH (20:41)
[2018-11-11] MEDS: Acetaminophen 325 MG TAB PO PRN (01:41)
[2018-11-11] MEDS: Dronabinol 2.5 MG CAP PO SCH ×2 (08:00→16:22)
[2018-11-11] MEDS: hydrALAZINE 25 MG TAB PO SCH ×3 (08:57→20:22)
[2018-11-11] MEDS: cycloSPORINE, Modified 25 MG CAP PO SCH ×2 (08:57→20:22)
[2018-11-11] MEDS: NIFEdipine XL 30 MG TAB PO SCH (08:58)
[2018-11-11] MEDS: Venlafaxine XR 37.5 MG CAP PO SCH (08:58)
[2018-11-11] MEDS: Ezetimibe 10 MG TAB PO SCH (08:58)
[2018-11-11] MEDS: Sodium Bicarbonate Tab 325 MG TAB PO SCH ×3 (08:58→20:26)
[2018-11-11] MEDS: Polyethylene Glycol 3350 17 GM Packet PO SCH (08:59)
[2018-11-11] MEDS: ALPRAZolam 0.25 MG TAB PO PRN ×2 (08:59→20:20)
[2018-11-11] MEDS: Isosorbide Mononitrate (ER) 30 MG TAB PO SCH (08:59)
[2018-11-11] MEDS: Calcitriol 0.25 MCG CAP PO SCH (08:59)
[2018-11-11] MEDS: Levothyroxine Sodium 88 MCG TAB PO SCH (08:59)
[2018-11-11] MEDS: Atenolol 25 MG TAB PO SCH (20:22)
[2018-11-11] MEDS: Aspirin 81 mg Enteric Coated Tablet PO SCH (20:22)
[2018-11-12] MEDS: Acetaminophen 325 MG TAB PO PRN ×3 (01:10→18:58)
[2018-11-12] MEDS: Sodium Bicarbonate Tab 325 MG TAB PO SCH ×3 (09:13→20:19)
[2018-11-12] MEDS: Levothyroxine Sodium 88 MCG TAB PO SCH (09:13)
[2018-11-12] MEDS: Polyethylene Glycol 3350 17 GM Packet PO SCH (09:13)
[2018-11-12] MEDS: Ezetimibe 10 MG TAB PO SCH (09:14)
[2018-11-12] MEDS: NIFEdipine XL 30 MG TAB PO SCH (09:14)
[2018-11-12] MEDS: cycloSPORINE, Modified 25 MG CAP PO SCH ×2 (09:14→20:21)
[2018-11-12] MEDS: hydrALAZINE 25 MG TAB PO SCH ×3 (09:14→20:20)
[2018-11-12] MEDS: ALPRAZolam 0.25 MG TAB PO PRN ×2 (09:15→20:19)
[2018-11-12] MEDS: Venlafaxine XR 37.5 MG CAP PO SCH (09:15)
[2018-11-12] MEDS: Isosorbide Mononitrate (ER) 30 MG TAB PO SCH (09:15)
[2018-11-12] MEDS: Dronabinol 2.5 MG CAP PO SCH ×2 (09:15→16:15)
[2018-11-12] MEDS: Calcitriol 0.25 MCG CAP PO SCH (09:15)
[2018-11-12] MEDS: Melatonin 3 MG TAB PO SCH (20:20)
[2018-11-12] MEDS: Aspirin 81 mg Enteric Coated Tablet PO SCH (20:21)
[2018-11-12] MEDS: Atenolol 25 MG TAB PO SCH (20:21)
[2018-11-12] MEDS: Calcium Carbonate 500 MG ChewTAB PO PRN (23:55)
[2018-11-13] MEDS: Acetaminophen 325 MG TAB PO PRN ×2 (00:47→09:10)
[2018-11-13] MEDS: ALPRAZolam 0.25 MG TAB PO PRN ×3 (04:19→20:22)
--- NOTE | 2018-11-13 07:41 | RAD ---
EXAM: Chest PA and lateral: HISTORY: Evaluate lung status COMPARISON: 11/11/2015 FINDINGS: Heart: Normal cardiac silhouette Aorta: Atherosclerosis of the aortic knob Pulmonary vessels: Normal Costophrenic angles: Persistent bilateral pleural effusions Lungs: Persistent bibasilar opacities, obscuring both hemidiaphragms Pneumothorax: No pneumothorax Osseous structures: No osseous abnormalities IMPRESSION: No significant change.
[2018-11-13] MEDS: Polyethylene Glycol 3350 17 GM Packet PO SCH (09:01)
[2018-11-13] MEDS: cycloSPORINE, Modified 25 MG CAP PO SCH ×2 (09:02→20:23)
[2018-11-13] MEDS: Venlafaxine XR 37.5 MG CAP PO SCH (09:02)
[2018-11-13] MEDS: Sodium Bicarbonate Tab 325 MG TAB PO SCH ×3 (09:02→20:23)
[2018-11-13] MEDS: NIFEdipine XL 30 MG TAB PO SCH (09:02)
[2018-11-13] MEDS: Dronabinol 2.5 MG CAP PO SCH ×2 (09:03→17:16)
[2018-11-13] MEDS: Isosorbide Mononitrate (ER) 30 MG TAB PO SCH (09:03)
[2018-11-13] MEDS: Ezetimibe 10 MG TAB PO SCH (09:03)
[2018-11-13] MEDS: Calcitriol 0.25 MCG CAP PO SCH (09:03)
[2018-11-13] MEDS: Levothyroxine Sodium 88 MCG TAB PO SCH (09:03)
[2018-11-13] MEDS: hydrALAZINE 25 MG TAB PO SCH ×3 (09:03→20:23)
[2018-11-13 12:43] LABS: #Lymphocytes 0.6 thou/uL (1.20-3.40); #Monocytes 0.8 thou/uL (0.11-0.59); %Basophils 0.1 % (0.0-1.0); %Eosinophils 0.1 % (0.0-10.0); %Lymphocytes 5.6 % (21.0-51.0); %Neutrophils 87.2 % (42.0-75.0); Hemoglobin 9.2 g/dL (12.0-16.0); Mean Corpuscular HGB CONC 32.3 g/dL (32.0-36.0); Mean Corpuscular Hemoglobin 30.9 pg (27.0-31.0); Mean Corpuscular Volume 95.5 fL (78.0-98.0); Mean Platelet Volume 4.9 fL (7.4-10.4); Platelet Count 238 thou/uL (130-400); RBC Distribution Width 16.5 % (11.5-14.5); Red Blood Cell (RBC) Count 2.99 mill/uL (4.20-5.40); White Blood Cell (WBC) Count 11.5 thou/uL (4.8-10.8)
[2018-11-13] MEDS: traMADol HCl 50 MG TAB PO PRN ×2 (12:50→20:30)
[2018-11-13 13:00] LABS: ALT (SGPT) 29 U/L (8-55); AST (SGOT) 21 U/L (5-34); Albumin 3.5 g/dL (3.4-4.8); Alkaline Phosphatase 74 U/L (40-150); Anion Gap 15 mmol/L (10-20); BUN (Urea Nitrogen) 43 mg/dL (9.8-20.1); Calc. Creatinine Clearance 12 mL/min (70-130); Calcium 9.2 mg/dL (7.8-10.44); Carbon Dioxide 21 mmol/L (23-31); Chloride 100 mmol/L (98-107); Estimated GFR-MDRD 16; Globulin 2.2 g/dL (2.4-3.5); Glucose 108 mg/dL (83-110); Potassium 3.4 mmol/L (3.5-5.1); Protein, Total 5.7 g/dL (6.0-8.3); Sodium 133 mmol/L (136-145)
[2018-11-13] MEDS ORDERED: Furosemide 40 MG TAB PO SCH ×2 (14:10→14:15)
--- NOTE | 2018-11-13 14:32 | CT ---
ABDOMEN CT WITHOUT CONTRAST PELVIC CT WITHOUT CONTRAST: HISTORY: Severe abdominal pain. COMPARISON: 05/17/2017. FINDINGS: Abdomen CT: Moderate bilateral pleural effusions with bibasilar consolidation due to atelectasis, aspiration or p neumonia. Heart is enlarged and there is evidence of a small amount of pericardial fluid. Limited evaluation of the solid organs due to lack of IV contrast. Grossly no solid organ abnormality . Unremarkable gallbladder. Limited evaluation the abdomen due to motion. No mesenteric mass, lymphadenopathy, free air or free f luid. Bilaterally no evidence of obstructive uropathy. Limited evaluation the alimentary canal due to motion and lack of oral contrast. Small bowel loops doyle ve an overall normal caliber. Ileocecal junction is unremarkable. Appendix is difficult to appreciate. Nevertheless, no inflammation of the thecal apex. Extensive diverticulosis involving the sigmoid colon. There is bowel wall thickening which is nonspecific and may be due to remote bouts of diverticulitis. If there is concern for underlying mass or mucosal-based pathology, colonoscopy ca n be performed. Elongation and atherosclerosis of the abdominal aorta. The infrarenal abdominal aorta measures 3.9 x [address]: Urinary bladder is unremarkable. No pelvic mass, lymphadenopathy, free air or free fluid. Surgically absent uterus. Osseous structures: Diffuse bone demineralization. Multiple chronic compression fractures of the lumbar spine. There is s clerosis involving a compression deformity at the T9 level, incompletely evaluated. Findings are similar to a CT from 10/14/2018 IMPRESSION: 1. Limited evaluation of the abdomen due to the lack of IV and oral contrast, along with motion. No o bvious acute abnormality in the abdomen and pelvis. 2. Bilateral pleural effusions with consolidation of both lower lobes due to atelectasis, aspiration or pneumonia.. Transcribed Date/Time: 11/13/2018 2:38 PM
[2018-11-13] MEDS: Amoxicillin/Potassium Clav 875 MG TAB PO SCH (20:23)
[2018-11-13] MEDS: Aspirin 81 mg Enteric Coated Tablet PO SCH (20:24)
[2018-11-13] MEDS: Atenolol 25 MG TAB PO SCH (20:25)
[2018-11-13] MEDS: Melatonin 3 MG TAB PO SCH (20:31)
[2018-11-14] MEDS ORDERED: cloNIDine 0.1mg/24 Hour PATCH TD SCH (09:00)
[2018-11-14] MEDS: Dronabinol 2.5 MG CAP PO SCH ×2 (10:02→18:29)
[2018-11-14] MEDS: Amoxicillin/Potassium Clav 875 MG TAB PO SCH ×3 (10:03→23:05)
[2018-11-14] MEDS: Venlafaxine XR 37.5 MG CAP PO SCH (10:03)
[2018-11-14] MEDS: Isosorbide Mononitrate (ER) 30 MG TAB PO SCH (10:03)
[2018-11-14] MEDS: Furosemide 40 MG TAB PO SCH (10:03)
[2018-11-14] MEDS: traMADol HCl 50 MG TAB PO PRN ×2 (10:03→18:40)
[2018-11-14] MEDS: NIFEdipine XL 30 MG TAB PO SCH (10:05)
[2018-11-14] MEDS: cycloSPORINE, Modified 25 MG CAP PO SCH ×2 (10:05→23:06)
[2018-11-14] MEDS: Ezetimibe 10 MG TAB PO SCH (10:05)
[2018-11-14] MEDS: hydrALAZINE 25 MG TAB PO SCH ×3 (10:05→23:09)
[2018-11-14] MEDS: Levothyroxine Sodium 88 MCG TAB PO SCH (10:06)
[2018-11-14] MEDS: Sodium Bicarbonate Tab 325 MG TAB PO SCH ×3 (10:06→23:04)
[2018-11-14] MEDS: Polyethylene Glycol 3350 17 GM Packet PO SCH (10:06)
[2018-11-14] MEDS: Calcitriol 0.25 MCG CAP PO SCH (10:06)
[2018-11-14] MEDS: Aspirin 81 mg Enteric Coated Tablet PO SCH (23:03)
[2018-11-14] MEDS: Atenolol 25 MG TAB PO SCH (23:07)
[2018-11-14] MEDS: Melatonin 3 MG TAB PO SCH (23:08)
[2018-11-15] MEDS: Dronabinol 2.5 MG CAP PO SCH ×2 (07:36→16:16)
[2018-11-15] MEDS: Furosemide 40 MG TAB PO SCH (07:36)
[2018-11-15] MEDS: Amoxicillin/Potassium Clav 875 MG TAB PO SCH ×2 (08:13→21:53)
[2018-11-15] MEDS: Calcitriol 0.25 MCG CAP PO SCH (08:14)
[2018-11-15] MEDS: cycloSPORINE, Modified 25 MG CAP PO SCH ×2 (08:14→21:56)
[2018-11-15] MEDS: Ezetimibe 10 MG TAB PO SCH (08:14)
[2018-11-15] MEDS: NIFEdipine XL 30 MG TAB PO SCH (08:14)
[2018-11-15] MEDS: Levothyroxine Sodium 88 MCG TAB PO SCH (08:15)
[2018-11-15] MEDS: Isosorbide Mononitrate (ER) 30 MG TAB PO SCH (08:15)
[2018-11-15] MEDS: Venlafaxine XR 37.5 MG CAP PO SCH (08:15)
[2018-11-15] MEDS: Polyethylene Glycol 3350 17 GM Packet PO SCH (08:16)
[2018-11-15] MEDS: hydrALAZINE 25 MG TAB PO SCH ×3 (08:16→21:51)
[2018-11-15] MEDS: Sodium Bicarbonate Tab 325 MG TAB PO SCH ×3 (08:24→21:52)
[2018-11-15] MEDS: traMADol HCl 50 MG TAB PO PRN ×2 (11:54→21:59)
[2018-11-15] MEDS: Atenolol 25 MG TAB PO SCH (21:53)
[2018-11-15] MEDS: Melatonin 3 MG TAB PO SCH (21:55)
[2018-11-15] MEDS: Aspirin 81 mg Enteric Coated Tablet PO SCH (21:55)
[2018-11-16 05:40] LABS: Anion Gap 19 mmol/L (10-20); BUN (Urea Nitrogen) 56 mg/dL (9.8-20.1); Calc. Creatinine Clearance 9 mL/min (70-130); Calcium 8.9 mg/dL (7.8-10.44); Carbon Dioxide 21 mmol/L (23-31); Chloride 96 mmol/L (98-107); Estimated GFR-MDRD 12; Glucose 119 mg/dL (83-110); Potassium 3.8 mmol/L (3.5-5.1); Sodium 132 mmol/L (136-145)
[2018-11-16 06:57] LABS: Hemoglobin 8.2 g/dL (12.0-16.0); MDiff Complete? YES; Manual Diff?? YES; Mean Corpuscular HGB CONC 32.8 g/dL (32.0-36.0); Mean Corpuscular Hemoglobin 31.2 pg (27.0-31.0); Mean Platelet Volume 5.6 fL (7.4-10.4); Platelet Count 264 thou/uL (130-400); RBC Distribution Width 16.1 % (11.5-14.5); Red Blood Cell (RBC) Count 2.64 mill/uL (4.20-5.40); White Blood Cell (WBC) Count 5.2 thou/uL (4.8-10.8)
[2018-11-16 06:58] LABS: Band 2 % (5-11); Lymphocytes 12 % (21-51); Monocytes 13 % (0-10); Neutrophil 73 % (42-75)
[2018-11-16 06:59] LABS: Anisocytosis SLIGHT = 6-15 cells (100X) (0-5/hpf); Platelet Morphology Comment Appears Adequate
[2018-11-16] MEDS: Polyethylene Glycol 3350 17 GM Packet PO SCH (09:28)
[2018-11-16] MEDS: cycloSPORINE, Modified 25 MG CAP PO SCH ×2 (09:29→20:09)
[2018-11-16] MEDS: hydrALAZINE 25 MG TAB PO SCH ×3 (09:29→20:08)
[2018-11-16] MEDS: Calcitriol 0.25 MCG CAP PO SCH (09:30)
[2018-11-16] MEDS: Ezetimibe 10 MG TAB PO SCH (09:30)
[2018-11-16] MEDS: Sodium Bicarbonate Tab 325 MG TAB PO SCH ×3 (09:30→20:07)
[2018-11-16] MEDS: NIFEdipine XL 30 MG TAB PO SCH (09:31)
[2018-11-16] MEDS: Levothyroxine Sodium 88 MCG TAB PO SCH (09:31)
[2018-11-16] MEDS: Venlafaxine XR 37.5 MG CAP PO SCH (09:31)
[2018-11-16] MEDS: EPOETIN ALFA-EPBX (NON-ESRD) 10,000 UNIT/ML VIAL SC SCH (09:32)
[2018-11-16] MEDS: Amoxicillin/Potassium Clav 875 MG TAB PO SCH ×2 (09:32→20:07)
[2018-11-16] MEDS: ALPRAZolam 0.25 MG TAB PO PRN ×2 (09:32→20:07)
[2018-11-16] MEDS: Isosorbide Mononitrate (ER) 30 MG TAB PO SCH (09:32)
[2018-11-16] MEDS: Dronabinol 2.5 MG CAP PO SCH ×2 (09:32→16:33)
[2018-11-16] MEDS: Furosemide 40 MG TAB PO SCH (09:32)
[2018-11-16 13:07] VITALS: BMI 21.2
[2018-11-16 18:08] LABS: H. pylori IgA ABS Less than 9.0 units (0.0-8.9); H. pylori IgG ABS 0.41 (0.00-0.79); H. pylori IgM ABS Less than 9.0 units (0.0-8.9)
[2018-11-16] MEDS: traMADol HCl 50 MG TAB PO PRN (20:06)
[2018-11-16] MEDS: Atenolol 25 MG TAB PO SCH (20:08)
[2018-11-16] MEDS: Melatonin 3 MG TAB PO SCH (20:09)
[2018-11-16] MEDS: Aspirin 81 mg Enteric Coated Tablet PO SCH (20:09)
[2018-11-17] MEDS: Amoxicillin/Potassium Clav 875 MG TAB PO SCH (08:27)
[2018-11-17] MEDS: NIFEdipine XL 30 MG TAB PO SCH (08:27)
[2018-11-17] MEDS: Sodium Bicarbonate Tab 325 MG TAB PO SCH (08:27)
[2018-11-17] MEDS: Polyethylene Glycol 3350 17 GM Packet PO SCH (08:28)
[2018-11-17] MEDS: hydrALAZINE 25 MG TAB PO SCH (08:28)
[2018-11-17] MEDS: Venlafaxine XR 37.5 MG CAP PO SCH (08:28)
[2018-11-17] MEDS: Ezetimibe 10 MG TAB PO SCH (08:28)
[2018-11-17] MEDS: Calcitriol 0.25 MCG CAP PO SCH (08:29)
[2018-11-17] MEDS: ALPRAZolam 0.25 MG TAB PO PRN (08:29)
[2018-11-17] MEDS: Dronabinol 2.5 MG CAP PO SCH (08:29)
[2018-11-17] MEDS: Levothyroxine Sodium 88 MCG TAB PO SCH (08:29)
[2018-11-17] MEDS: Isosorbide Mononitrate (ER) 30 MG TAB PO SCH (08:29)
[2018-11-17] MEDS: Furosemide 40 MG TAB PO SCH (08:29)
[2018-11-17] MEDS: cycloSPORINE, Modified 25 MG CAP PO SCH (08:34)
[2018-11-17 08:35] VITALS: BP 136/62
[2018-11-17 09:21] VITALS: TEMP 98.2
--- NOTE | 2018-11-17 11:33 | RAD ---
EXAM: Chest Two Views 11/17/2018 11:29 AM HISTORY: Shortness of breath COMPARISON: November 13, 2018 FINDINGS: Heart: Moderate Pulmonary vessels: Mild to moderate pulmonary vascular congestion Costophrenic angles: Moderate bilateral pleural effusions are stable. Lungs: Linear densities involving the right upper lobe are stable. This likely reflect scarring. Pneumothorax: None. Osseous structures:Intact. Additional findings: None. IMPRESSION: Stable findings of CHF.
== END 2018-11-17 14:40 | disposition short-term general hospital (02) | DRG 884 ==
LOC: MADMS 15:40
PROVIDERS: ADMIT Family Medicine; ATTEND Family Medicine
DX: R54 Age-related physical debility (principal); I13.0 Hypertensive heart and chronic kidney disease with heart failure and stage 1 through stage 4 chronic kidney disease, or unspecified chronic kidney disease; N18.4 Chronic kidney disease, stage 4 (severe); I50.32 Chronic diastolic (congestive) heart failure; N17.9 Acute kidney failure, unspecified; I25.10 Atherosclerotic heart disease of native coronary artery without angina pectoris; E03.9 Hypothyroidism, unspecified; M81.0 Age-related osteoporosis without current pathological fracture; Z90.49 Acquired absence of other specified parts of digestive tract; Z90.710 Acquired absence of both cervix and uterus; F41.9 Anxiety disorder, unspecified; F32.9 Major depressive disorder, single episode, unspecified; Z88.5 Allergy status to narcotic agent; Z91.041 Radiographic dye allergy status; Z79.899 Other long term (current) drug therapy; Z79.82 Long term (current) use of aspirin; E78.5 Hyperlipidemia, unspecified
CPT/HCPCS: 71046; 74176; 80048; 80053; 81001; 83880; 85025; 93005; 93010; J1644; J7515; Q0167; Q5106